=== PATIENT | female | born 1995 | race Caucasian/White ===

== ENCOUNTER 2021-09-15 18:15 | Outpatient (CLI) | payer BC, SELFPAY ==
--- NOTE | 2021-09-19 11:57 | OB.TRI.NOTE ---
HPI - General HPI Narrative HEAVENLY MARTELL, is a 25 F who presents at 39 + weeks w/ ctxs. PFSH PFSH Home Medications [id number]-txl-[id number] 1 tab PO DAILY 09/15/21 [History Last Taken 09/14/21] acetaminophen 1,000 mg PO Q6H PRN PRN #0 tab 09/17/21 [Rx Last Taken Unknown] ibuprofen 600 mg PO Q6H PRN PRN #30 tab 09/17/21 [Rx Last Taken Unknown] Allergy/AdvReac Type Severity Reaction Status Date / Time No Known Allergies Allergy Verified 08/25/13 17:24 Social History Smoking Status: Never smoker History Elective abortions Hx Para 1 Spontaneous abortions Hx # Term Pregnancies Ectopic pregnancies Hx # Pregnancies Multiple births # of living children Assessment & Plan (1) Previous delivery, antepartum: PLAN: patient was not in active labor, d/angy home and returned later same day in active labor.
== END 2021-09-15 23:59 | disposition home or self-care (01) ==
LOC: WPOUT 18:21
PROVIDERS: Visit Provider Obstetrics & Gynecology
DX: O47.1 False labor at or after 37 completed weeks of gestation (principal); O34.219 Maternal care for unspecified type scar from previous cesarean delivery; Z3A.39 39 weeks gestation of pregnancy

== ENCOUNTER 2021-09-15 18:25 | Inpatient (IN) | payer BC, SELFPAY ==
[2021-09-15] VITALS (32 sets, daily range): BP systolic 82–136; BP diastolic 42–83; PULSE 55–103; TEMP 36.2–36.5; O2SAT 89–100; BMI 28.3
[2021-09-15] MEDS: Lactated Ringers 500 ML 999 ML IV ×2 (18:35→19:56)
[2021-09-15] MEDS: Lactated Ringers 1,000 ML 200 ML IV (18:35)
[2021-09-15 19:02] LABS: Absolute Lymphocyte Count 1.43 X10^3/uL (0.83-4.51); Absolute Neutrophil Count 10.3 X10^3/uL (2.0-7.7); Basophil# 0.02 X10^3/uL; Basophil% 0.2 % (0-1); Eosinophil# 0.06 X10^3/uL; Eosinophils% 0.5 % (0-5); Hemoglobin 13.5 g/dL (12.0-15.0); Lymphocyte # 1.43 X10^3/ul (0.83-4.51); Lymphocyte % 11.6 % (19-41); Mean Corp Hgb Conc 33.8 g/dL (32-36); Mean Corpuscular Hgb 29.2 pg (27.0-32.0); Mean Corpuscular Volume 86.6 fL (81-99); Mean Platelet Vol. 10.1 fl (6.2-12.0); Monocyte# 0.53 X10^3/uL; Monocyte% 4.3 % (0-10); NRBC Flagged by Analyzer 0 % (0-5); Neutrophil # 10.28 X10^3/uL (2.7-7.7); Neutrophil % 83.1 % (47-70); Platelet Count 293 K/mm3 (150-450); RBC Distribution Width CV 12.9 % (11.6-14.6); RBC Distribution Width SD 40.3 fl (35.1-43.9); Red Blood Count 4.62 M/mm3 (4.2-5.4); White Blood Count 12.4 K/mm3 (4.4-11.0)
[2021-09-15] MEDS: fentaNYL-bupivacaine (epidural) 100 ML BAG EPIDURAL (19:54)
[2021-09-15 20:14] LABS: Hepatitis C Antibody Non-Reactive (Nonreactive)
[2021-09-15] MEDS: Oxytocin 30 units/NS 500 ml 30 UNITS/500 ML IV.SOLN 334 UNITS IV (23:23)
--- NOTE | 2021-09-15 23:47 | PCM.HP.OB ---
HPI - General General Date of Admission: 09/15/21 Date of Service: 09/15/21 Chief Complaint: labor HPI Narrative HEAVENLY MARTELL, is a 25-year-old female 2 para 1-0-0-1 with EDC of 09/17/2021 who presents complaining contractions. She denied vaginal bleeding. She had some bloody show. She was in labor and delivery for rule out labor. She was discharged home and returned a couple of hours later and found to be in active labor. has been uncomplicated to date other than she had a previous primary section for her first delivery. Maternal Data Information Final GUILLERMO: 09/17/21 Gestational age: 39 5/7 PFSH PFSH Home Medications [id number] [] 1 tab PO DAILY 09/15/21 [History Last Taken 09/14/21] Allergy/AdvReac Type Severity Reaction Status Date / Time No Known Allergies Allergy Verified 08/25/13 17:24 Social History Smoking Status: Never smoker History Elective abortions Hx Para 1 Spontaneous abortions Hx # Term Pregnancies Ectopic pregnancies Hx # Pregnancies Multiple births # of living children ROS Constitutional Constitutional: Denies fatigue, fever(s) or malaise Eyes Eyes: Denies change in vision ENT HEENT: Denies dizziness or headache(s) Cardiovascular Cardiovascular: Denies chest pain, dyspnea or lightheadedness Respiratory/Chest Respiratory/Chest: Denies cough or dyspnea Gastrointestinal Gastrointestinal: Denies change in bowel habits Genitourinary Genitourinary: Denies burning urination or genital lesions Integumentary Integumentary: Denies rash Neurologic Neurologic: Denies confusion, dizziness, headache(s), numbness or weakness Vital Signs Vital Signs Vital Signs: 09/15/21 13:02 09/15/21 15:26 09/15/21 18:47 Temperature 97.7 F L Temperature Source Temporal Pulse Rate 93 73 76 Blood Pressure 120/75 120/61 108/63 BP Systolic 120 120 108 BP Diastolic 75 61 63 Pulse Ox 09/15/21 19:41 09/15/21 19:45 09/15/21 19:46 Temperature Temperature Source Pulse Rate 82 75 79 Blood Pressure 119/83 H 136/74 H BP Systolic 119 136 BP Diastolic 83 74 Pulse Ox 96 97 09/15/21 19:50 09/15/21 19:51 09/15/21 19:53 Temperature Temperature Source Pulse Rate 86 91 88 Blood Pressure 118/66 BP Systolic 118 BP Diastolic 66 Pulse Ox 99 89 09/15/21 19:55 09/15/21 19:56 09/15/21 20:00 Temperature Temperature Source Pulse Rate 80 79 73 Blood Pressure 91/55 L 91/53 L 96/50 L BP Systolic 91 91 96 BP Diastolic 55 53 50 Pulse Ox 98 09/15/21 20:01 09/15/21 20:05 09/15/21 20:06 Temperature Temperature Source Pulse Rate 79 68 75 Blood Pressure 104/52 L BP Systolic 104 BP Diastolic 52 Pulse Ox 97 98 09/15/21 20:10 09/15/21 20:11 09/15/21 20:16 Temperature Temperature Source Pulse Rate 76 73 74 Blood Pressure 99/57 L 106/51 L BP Systolic 99 106 BP Diastolic 57 51 Pulse Ox 98 100 09/15/21 20:19 09/15/21 20:21 09/15/21 20:25 Temperature Temperature Source Pulse Rate 81 70 66 Blood Pressure 105/51 L 100/57 L BP Systolic 105 100 BP Diastolic 51 57 Pulse Ox 99 09/15/21 20:29 09/15/21 21:55 09/15/21 21:56 Temperature 97.5 F L Temperature Source Pulse Rate 90 64 55 L Blood Pressure 104/55 L 102/56 L BP Systolic 104 102 BP Diastolic 55 56 Pulse Ox 99 09/15/21 23:04 09/15/21 23:15 09/15/21 23:20 Temperature 97.1 F L Temperature Source Temporal Pulse Rate 64 103 H 102 H Blood Pressure 112/55 L BP Systolic 112 BP Diastolic 55 Pulse Ox 100 99 100 09/15/21 23:42 Temperature Temperature Source Pulse Rate 95 Blood Pressure BP Systolic BP Diastolic Pulse Ox 98 Weight Weight: 77.3 kg Body Mass Index (BMI) 28.3 Physical Exam Const alert and no apparent distress General Appearance: cooperative HEENT normocephalic Resp normal respiratory effort Cardio regular rate GI soft to palpation GI Narrative: gravid, nontender, appropriate for gestational age Extremity no calf tenderness General Extremity: edema Skin no wounds Rashes: No rashes noted Psych activity/motor behavior normal Labs Labs Labs: Blood Type O POSITIVE Antibody Screen NEGATIVE Hct 40.0 % (37-47) Hgb 13.5 g/dL (12.0-15.0) Assessment & Plan (1) 39 weeks gestation of : PLAN: Estimated weight is less than 4000 g clinically. Pelvis is adequate to expect vaginal delivery. Risk benefits and alternatives to trial labor were discussed with patient, questions were answered to her satisfaction she desired to proceed. May have epidural as needed for pain control. Anesthesia, obstetrical and personnel notified. (2) Multigravida in third trimester: (3) Previous delivery, antepartum: (4) Spontaneous onset of labor:
--- NOTE | 2021-09-15 23:50 | EX.PCM.OBRPT ---
Assessment & Plan (1) First degree laceration of perineum during delivery, : (2) (vaginal after ): (3) Delivery outcome of single liveborn : Maternal Data Information Final GUILLERMO: 09/17/21 Gestational age: 39 5/7 Vaginal Delivery Maternal Presentation Maternal Presentation: Active Labor Operative Information Date of Procedure: 09/15/21 Pre-Operative Diagnosis: previous c/s Post-Operative Diagnosis: same Surgery / Procedure Performed: Type of Anesthesia: Epidural Anesthesiologist: Anita Boyd Special Medications: none Drain: Wright to straight drain Estimated Blood Loss: 300 Time of Delivery: 23:22 Findings Description of Procedure: A vigorous [female] was delivered [RADHA] over a first-degree vaginal laceration. The remainder the infant was delivered with maternal pushing and gentle traction only in less than 15 seconds. The Pitocin infusion was initiated for active management of the third stage. The cord was clamped and cut [after 1 minute]. The infant was attended to by the waiting nursing staff. The placenta was delivered spontaneously and intact. The cervix and vagina were intact. The first-degree vaginal laceration was repaired with 3-0 Vicryl suture in a running standard fashion. Sponge and needle counts were correct. A vaginal sweep was completed by me. Presentation: RADHA Amniotic Membrane Rupture Type: Artificial Amniotic Fluid Description: Clear and Lightly stained meconium Placental Delivery Description: Spontaneous Placenta Disposition: [facility] Cord Vessel Description: 3 Vessels Cord Entanglement: None A Gender: Female (Geeta) (1 minute): 8 (5 minute): 9 Delayed Cord Clamping: Yes Post Vaginal Delivery Medications Given After Delivery: IV Pitocin Episiotomy Description: None Laceration: 1st degree Complication Complications: None
[2021-09-16] VITALS (36 sets, daily range): BP systolic 84–110; BP diastolic 46–62; PULSE 56–88; RESP 16–18; TEMP 36.2–36.9; O2SAT 97–98
--- NOTE | 2021-09-16 02:45 | NURSING ---
Report given to Sophie VIDALES, taking over pt and care at this time.
--- NOTE | 2021-09-16 04:34 | NURSING ---
Epidural catheter removed and blue tip intact.
[2021-09-16] MEDS: Ibuprofen 600 MG Tablet PO ×3 (09:31→22:22)
[2021-09-16] MEDS: Senna/Docusate Sodium 1 Tablet PO (09:32)
[2021-09-16] MEDS: Acetaminophen 500 MG Tablet 1000 MG PO ×2 (12:29→18:42)
[2021-09-16] MEDS: Prenatal Vits Tablet 1 TABLET PO (12:31)
[2021-09-17 01:15] VITALS: BP 93/53; PULSE 70; RESP 16; TEMP 36.4
[2021-09-17] MEDS: Acetaminophen 500 MG Tablet 1000 MG PO ×2 (01:15→12:25)
[2021-09-17] MEDS: Benzocaine/Lanolin/Aloe Vera 1 SPRAY EACH TOPICAL (04:52)
[2021-09-17] MEDS: Ibuprofen 600 MG Tablet PO (07:43)
[2021-09-17] MEDS: Senna/Docusate Sodium 1 Tablet PO (07:43)
[2021-09-17 07:45] VITALS: BP 103/57; PULSE 65; RESP 16; TEMP 35.9
--- NOTE | 2021-09-17 09:26 | PCM.PN.OB ---
Subjective Subjective Doing well per patient and nursing staff. Ambulating and taking PO without difficulty. Voiding and passing flatus. Pain controlled. , services for assistance. Denies headache, visual changes, chest pain, shortness of breath, leg pain or increased bleeding. Lochia normal. Objective Data Objective Data Vital Signs: Vital Signs Temp Pulse Resp BP Pulse Ox 96.7 F L 65 16 103/57 L 98 09/17/21 07:45 09/17/21 07:45 09/17/21 07:45 09/17/21 07:45 09/16/21 01:57 Oxygen Delivery Method Room Air Weight: 170 lb 6.677 oz Body Mass Index (BMI) 28.3 Intake & Output: Intake and Output for Last 24 Hours 09/15/21 09/16/21 09/17/21 23:59 23:59 23:59 Intake Total 2220.33 / 2220.33 333 / 333 Output Total 200 / 200 2400 / 2400 Balance 2019. / 33 -2066 / Lab / Micro Data Result Diagrams: 09/15/21 18:35 Micro: Microbiology 09/15/21 18:50 Nasal Secretion SARS-CoV-2 Antigen (Rapid) - Final ROS Constitutional Constitutional: Reports systems reviewed and no addt'l complaints, except as documented; Denies headache(s) Eyes Eyes: Denies acute decrease in peripheral vision, blurry vision or change in vision ENT HEENT: Reports systems reviewed and no addt'l complaints, except as documented Cardiovascular Cardiovascular: Denies chest pain or dizziness Respiratory/Chest Respiratory/Chest: Denies cough, dyspnea, dyspnea on exertion, shortness of breath at rest or shortness of breath with exertion Gastrointestinal Gastrointestinal: Denies abdominal pain, diarrhea, nausea or vomiting Genitourinary Genitourinary: Denies abdominal discomfort Musculoskeletal Musculoskeletal: Denies limited range of motion Integumentary Integumentary: Reports systems reviewed and no addt'l complaints, except as documented Neurologic Neurologic: Reports systems reviewed and no addt'l complaints, except as documented Psychiatric Psychiatric: Reports systems reviewed and no addt'l complaints, except as documented Endocrine Endocrinology: Reports systems reviewed and no addt'l complaints, except as documented Hematologic/Lymphatic Hematologic/Lymphatic: Reports systems reviewed and no addt'l complaints, except as documented Allergic/Immunologic Allergic/Immunologic: Reports systems reviewed and no addt'l complaints, except as documented Physical Exam Const alert and oriented x3 General Appearance: cooperative Orientation / Consciousness: awake, oriented to person, oriented to place and oriented to time Exam Limitations: no limitations HEENT normocephalic Head and Scalp: normal to inspection, normocephalic and atraumatic Face and Sinus: normal facial exam Eyes General Eye: normal appearance of both eyes Neck full ROM Chest Chest: symmetrical chest wall rise Resp normal respiratory effort and normal air movement Auscultation: clear to auscultation bilaterally Cardio regular rate, regular rhythm, S1 normal heart sound, S2 normal heart sound, no murmurs, no rub, no gallops and no clicks GI normal to inspection, nondistended, normoactive bowel sounds and non-tender GI Narrative: fundus 2 below U Narrative: lochia rubra, laceration well approximated with sutures Bladder / Kidney Exam: no CVA tenderness Back/Spine normal ROM Extremity normal to inspection and full ROM Skin no rashes or lesions noted Neuro oriented x3, CN's II-XII intact bilaterally and moves all extremities Sensorium / Orientation: awake, alert and oriented to person Motor Exam: clonus absent Deep Tendon Reflexes: Rt Patellar (L4): 2+ and Lt Patellar (L4): 2+ Assessment & Plan (1) Delivery outcome of single liveborn : (2) First degree laceration of perineum during delivery, : (3) (vaginal after ): PLAN: 1) Routine PP care 2) , services upon request 3) Pain management, declines prescription 4) vitals stable 5) Planning D/C home today 6) Follow up in 2 weeks virtual visit and 6 weeks PP visit
--- NOTE | 2021-09-17 09:28 | PCM.DC.SUM ---
Providers Date of Admission: 09/15/21 Reason For Visit: VAGINAL DELIVERY Diagnosis Discharge Diagnosis (1) Delivery outcome of single liveborn infant: Status: Acute Code(s): Z37.0 - Single live (2) First degree laceration of perineum during delivery, : Status: Acute Code(s): O70.0 - First degree perineal laceration during delivery (3) (vaginal after ): Status: Acute Code(s): O34.219 - Maternal care for unspecified type scar from previous delivery Medications at Discharge Home Medications [id number]-[id number] 1 tab PO DAILY 09/15/21 acetaminophen 1,000 mg PO Q6H PRN PRN #0 tab 09/17/21 ibuprofen 600 mg PO Q6H PRN PRN #30 tab 09/17/21 Weight / BMI Weight Weight: 170 lb 6.677 oz Body Mass Index (BMI) 28.3 ABG / Lab / Microbiology Data Result Diagrams: 09/15/21 18:35 Microbiology: Microbiology 09/15/21 18:50 Nasal Secretion SARS-CoV-2 Antigen (Rapid) - Final Meaningful Use Info Meaningful Use Diagnoses (Choose all that apply): None applicable Discharge Plan Admission Admit Date/Time: 09/15/21 18:25 Primary Reason for Your Visit: Vaginal Delivery Attending Provider: Sasha Sam Instructions Patient Instructions: After a Vaginal Discharge Orders/Prescriptions Prescriptions: New acetaminophen 500 mg Tablet 1,000 mg PO Q6H PRN PRN (Reason: Pain 1-10 Or Fever) Qty: 0 RF: 0 ibuprofen 600 mg Tablet 600 mg PO Q6H PRN PRN (Reason: Pain Score 1-3) Qty: 30 RF: 0 Continued vvarqrcu-vck-Za-FA 1 mg Tablet 1 tab PO DAILY RF: 0 Referrals / Follow Up: Sasha Sam MD [STAFF PHYSICIAN] - Disposition Disposition (needs filled in before D/C Order can be placed): Home, Self Care
[2021-09-17 12:15] VITALS: BP 93/66; PULSE 88; RESP 16; TEMP 36.6
[2021-09-17] MEDS: Prenatal Vits Tablet 1 TABLET PO (12:25)
== END 2021-09-17 13:40 | disposition home or self-care (01) | DRG 807 ==
PROVIDERS: Admitting Provider Obstetrics & Gynecology; Referring Provider Obstetrics & Gynecology; Visit Provider Obstetrics & Gynecology
DX: O34.219 Maternal care for unspecified type scar from previous cesarean delivery (principal); Z37.0 Single live birth; O70.0 First degree perineal laceration during delivery; Z3A.39 39 weeks gestation of pregnancy; O77.0 Labor and delivery complicated by meconium in amniotic fluid; Z39.1 Encounter for care and examination of lactating mother
CPT/HCPCS: 59025; 59050; 85025; 86803; 86850; 86900; 86901; 87811; 99218; J7120; G0378

== ENCOUNTER 2023-06-25 16:54 | Inpatient (IN) | payer BC, SELFPAY ==
[2023-06-25] VITALS (49 sets, daily range): BP systolic 69–130; BP diastolic 43–82; PULSE 53–96; TEMP 36.1–36.4; O2SAT 94–100; BMI 28.0
[2023-06-25] MEDS: Lactated Ringers 1,000 ML 50 ML IV (16:50)
[2023-06-25] MEDS: LACTATED RINGERS 500 ML 999 ML IV ×2 (17:00→21:24)
[2023-06-25 17:06] LABS: Absolute Lymphocyte Count 1.49 X10^3/uL (0.83-4.51); Absolute Neutrophil Count 9.6 X10^3/uL (2.0-7.7); Basophil# 0.02 X10^3/uL; Basophil% 0.2 % (0-1); Eosinophil# 0.07 X10^3/uL; Eosinophils% 0.6 % (0-5); Hematocrit 35.7 % (37-47); Hemoglobin 12.2 g/dL (12.0-15.0); Lymphocyte # 1.49 X10^3/ul (0.83-4.51); Lymphocyte % 12.7 % (19-41); Mean Corp Hgb Conc 34.2 g/dL (32-36); Mean Corpuscular Hgb 29.5 pg (27.0-32.0); Mean Corpuscular Volume 86.4 fL (81-99); Mean Platelet Vol. 10.4 fl (6.2-12.0); Monocyte% 4.3 % (0-10); NRBC Flagged by Analyzer 0 % (0-5); Neutrophil # 9.61 X10^3/uL (2.7-7.7); Neutrophil % 81.8 % (47-70); Platelet Count 250 K/mm3 (150-450); RBC Distribution Width CV 13.1 % (11.6-14.6); RBC Distribution Width SD 41.1 fl (35.1-43.9); Red Blood Count 4.13 M/mm3 (4.2-5.4); White Blood Count 11.7 K/mm3 (4.4-11.0)
--- NOTE | 2023-06-25 17:50 | PCM.HP.OB ---
HPI - General General Date of Admission: 06/25/23 HPI Narrative HEAVENLY MARTELL, is a 27 F at 39.2 weeks gestation who presents in spontaneous labor. Maternal Data Information UGILLERMO Calculator Estimated Delivery Date Method Current WG Current Estimate 06/30/23 Manual 39w 2d PFSH PFSH Medical History Asthma Family history of malignant hyperthermia Superficial varicosities Vaginal after Home Medications [id number]-yaf-[id number]-FA 1 mg tablet 1 tab PO DAILY Check with primary doctor 09/15/21 [History Last Taken 09/14/21] Allergy/AdvReac Type Severity Reaction Status Date / Time No Known Allergies Allergy Verified 06/25/23 16:59 Surgical History Previous section Social History Smoking Status: Never smoker History Elective abortions Hx Para 1 Spontaneous abortions Hx # Term Pregnancies Ectopic pregnancies Hx # Pregnancies Multiple births # of living children ROS Eyes Eyes: Denies blurry vision, change in vision or spots in vision ENT HEENT: Denies dizziness or headache(s) Cardiovascular Cardiovascular: Denies abdominal pain, chest pain or dyspnea Respiratory/Chest Respiratory/Chest: Denies cough, dyspnea, shortness of breath at rest or shortness of breath with exertion Gastrointestinal Gastrointestinal: Denies abdominal pain, diarrhea or vomiting Genitourinary Genitourinary: Denies change in urinary stream, difficulty urinating or dysuria Musculoskeletal Musculoskeletal: Reports none Integumentary Integumentary: Denies rash Neurologic Neurologic: Denies dizziness, headache(s), memory loss or weakness Psychiatric Psychiatric: Reports none Vital Signs Vital Signs Vital Signs: 06/25/23 13:18 06/25/23 13:18 06/25/23 13:22 Temperature Temperature Source Pulse Rate 84 93 Blood Pressure 120/75 BP Systolic 120 BP Diastolic 75 Pulse Ox 06/25/23 13:22 06/25/23 13:19 06/25/23 13:19 Temperature 97.6 F L Temperature Source Temporal Pulse Rate Blood Pressure BP Systolic BP Diastolic Pulse Ox 96 06/25/23 15:12 06/25/23 15:12 Temperature Temperature Source Pulse Rate 82 Blood Pressure 124/72 H BP Systolic 124 BP Diastolic 72 Pulse Ox Weight Weight: 168 lb 13.985 oz Body Mass Index (BMI) 28.0 Physical Exam Const alert, oriented x3 and no apparent distress General Appearance: cooperative Orientation / Consciousness: awake Exam Limitations: no limitations HEENT normocephalic Head and Scalp: normal to inspection Eyes General Eye: normal appearance of both eyes Neck full ROM and no lymphadenopathy Lymph Lymphatic: no lymphadenopathy noted Chest inspection of chest normal Resp normal respiratory effort, normal air movement and clear to auscultation bilaterally Effort and Inspection: able to speak in complete sentences and symmetric chest movement Cardio regular rate and regular rhythm GI normal to inspection, nondistended, normoactive bowel sounds Manual OB Exam: presentation cephalic Back/Spine normal ROM Extremity full ROM and no calf tenderness Skin no rashes or lesions noted General Skin Exam: no breakdown Neuro oriented x3 and CN's II-XII intact bilaterally Psych mental status grossly normal and thought process normal Labs Labs Labs: Blood Type O POSITIVE Antibody Screen NEGATIVE Hct 35.7 % (37-47) L Hgb 12.2 g/dL (12.0-15.0) Syphilis Total Ab Pending Hepatitis C Antibody Non-Reactive (Nonreactive) Rhogam given: No GBS NEG Assessment & Plan (1) Spontaneous onset of labor: (2) Previous delivery, antepartum: (3) Multigravida in third trimester: (4) 39 weeks gestation of : (5) History of : (6) History of delivery, antepartum: PLAN: Plan CE 5-6 cm/ 80/ -1 Admit to labor and delivery Routine labs Start IV and run fluids per orders GBS negative Epidural when indicated Desires - consent signed Dr. Gay aware of plan of care and admission and is in route to unit
[2023-06-25 18:28] LABS: Syphilis Antibodies Non-reactive
[2023-06-25] MEDS: Lactated Ringers 1,000 ML 200 ML IV (19:25)
[2023-06-25] MEDS: fentaNYL-bupivacaine (epidural) 100 ML BAG EPIDURAL (20:17)
--- NOTE | 2023-06-25 20:28 | PCM.PN.BLA ---
Progress Note pt examined at bedside- AROM Moderate Meconium. 7-8cm/70/-2. Epidural in place- pt is comfortable. FHR tracing Cat1 reactive. anticipate
[2023-06-25] MEDS: Oxytocin 15 Units/NS 250ml 15 UNITS/250 ML IV.SOLN 83 UNITS IV (22:50)
[2023-06-25] MEDS: Oxytocin 10 UNITS/ML Vial IM (22:52)
--- NOTE | 2023-06-25 22:58 | OP.PCM_ITS ---
Maternal Data Information GUILLERMO Calculator Estimated Delivery Date Method Current WG Current Estimate 06/30/23 Manual 39w 2d Vaginal Delivery Maternal Presentation Maternal Presentation: Active Labor Operative Information Date of Procedure: 06/25/23 Pre-Operative Diagnosis: Previous CS, Previous Successful , 39 weeks in l abor Post-Operative Diagnosis: Same, live female Surgery / Procedure Performed: Type of Anesthesia: Epidural Estimated Blood Loss: 100 Time of Delivery: 22:48 Findings Description of Procedure: Pt progressed to fully dilated- good maternal pushing efforts delivered head. Shoulder dystocia recognized, pt asked to stop pushing legs placed in nicholas and with good pushing efforts the anterior shoulder delivered followed by rest of body without complication. infant was placed on maternal chest and peds team available for resuscitation. IM and IV pitocin given. Placenta delivered intact. Small 1st degree vaginal laceration noted bleeding- hemostasis achieved with 3-0 rapide. Presentation: Vertex Amniotic Membrane Rupture Type: Artificial Amniotic Fluid Description: Moderate meconium Placental Delivery Description: Spontaneous Placenta Disposition: [facility] Specimen(s) Removed: placenta Cord Vessel Description: 3 Vessels Cord Entanglement: Around neck x 1, loose (reduced ) Nuchal Cord Compression: With compression Infant A Gender: Female (1 minute): 7 (5 minute): 9 Delayed Cord Clamping: Yes Post Vaginal Delivery Medications Given After Delivery: IV Pitocin and IM Pitocin Episiotomy Description: None Laceration: Vaginal Extension/lac and 1st degree Complication Complications: None
[2023-06-25] MEDS: Acetaminophen 500 MG Tablet PO (23:53)
[2023-06-26] VITALS (25 sets, daily range): BP systolic 91–106; BP diastolic 51–59; PULSE 57–76; RESP 16–18; TEMP 36.7–37.3; O2SAT 97–98
[2023-06-26] MEDS: Naproxen 500 MG Tablet PO ×3 (00:38→17:49)
--- NOTE | 2023-06-26 07:15 | PCM.PN.BLA ---
Progress Note Patient seen at bedside. Feeling good. Denies any pain. Ambulating and voiding without difficulty. with minimal support. Lochia is minimal. Physical Exam Const alert and no apparent distress General Appearance: cooperative and comfortable Exam Limitations: no limitations HEENT normocephalic Eyes General Eye: normal appearance of both eyes Neck full ROM General: normal visual inspection Chest Chest: symmetrical chest wall rise Resp normal respiratory effort and normal air movement Effort and Inspection: symmetric chest movement Auscultation: clear to auscultation bilaterally Cardio regular rate and regular rhythm GI normal to inspection, nondistended, normoactive bowel sounds Back/Spine normal ROM Extremity full ROM and no calf tenderness General Extremity: normal exam except as noted Skin no rashes or lesions noted Neuro CN's II-XII intact bilaterally Psych mental status grossly normal Assessment & Plan Assessment/Plan (1) Care and examination of lactating mother: (2) (vaginal after ): PLAN: Plan PPD 1 support Pain control Anticipate discharge home tomorrow
[2023-06-26] MEDS: Acetaminophen 500 MG Tablet 1000 MG PO (12:25)
[2023-06-26] MEDS: Benzocaine/Lanolin/Aloe Vera 1 SPRAY EACH TOPICAL (12:26)
[2023-06-27] MEDS: Acetaminophen 500 MG Tablet 1000 MG PO ×2 (00:01→10:18)
[2023-06-27 02:31] VITALS: BP 120/59; PULSE 71
[2023-06-27] MEDS: Naproxen 500 MG Tablet PO (02:31)
[2023-06-27 02:32] VITALS: BP 120/59; PULSE 73; RESP 16; TEMP 36.9; O2SAT 98
[2023-06-27 07:51] VITALS: BP 99/58; PULSE 59
[2023-06-27 07:56] VITALS: BP 121/81; PULSE 86; RESP 16; TEMP 36.3
--- NOTE | 2023-06-27 10:05 | PCM.PN.OB ---
Subjective Subjective Patient is doing well. Ambulating and voiding without difficulty. Lochia is normal. Breast-feeding without complaints. No chest pain, trouble breathing, leg pain. She had a bowel movement today. She desires to go home today. Objective Data Objective Data Vital Signs: Vital Signs Temp Pulse Resp BP Pulse Ox O2 Del Method 97.4 F L 86 16 121/81 H 98 Room Air 06/27/23 07:56 06/27/23 07:56 06/27/23 07:56 06/27/23 07:56 06/27/23 02:32 06/27/23 02:32 Oxygen Delivery Method Room Air Weight: 168 lb 13.985 oz Body Mass Index (BMI) 28.0 Intake & Output: Intake and Output for Last 24 Hours 06/25/23 06/26/23 06/27/23 23:59 23:59 23:59 Intake Total 1825.84 / 1825.84 250 / 250 Output Total 500 / 500 400 / 400 Balance 1325.84 / 1325.84 -150 / -150 Lab / Micro Data 06/25/23 16:50 Physical Exam Const alert and no apparent distress General Appearance: comfortable Assessment & Plan (1) (vaginal after ): PLAN: Patient is day 2 from a vaginal after a section. She is doing well meeting milestones for discharge. Discharge instructions reviewed.
--- NOTE | 2023-06-27 10:08 | DCINST_ITS ---
Discharge Instructions Diet Discharge Diet: No restrictions Activity Discharge Activity: May Drive and May Shower May resume sexual activity in: 6 weeks Ice area for (Minutes): 15 Weight Bearing Status: Weight bearing as tolerated Lifting Restrictions: nothing heavier than baby Dressing / Incision Call your doctor if you observe: Fever of 101 or Higher, Coldness, Increased Pain, Numbness or Tingling, Change in Color, Inability to urinate, Inability to have a bowel movement, Using more than 1 pad per hour, Shortness of breath, Dizziness, Fainting spells, Swelling in the ankles, Chest pain, Increased palpitations (irregular heartbeat), Calf discomfort and Uncontrolled pain Cleanse incision/area with: Soap & Water Follow Up Care Please Follow Up With: Christy Guillermo MD When: 1-2 weeks early 6 weeks for exam Test Results: Test results from this visit will be discussed in further detail at your follow- up appointment, if applicable. Discharge Plan Admission Admit Date/Time: 06/25/23 16:54 Primary Reason for Your Visit: delivery Attending Provider: Christy Guillermo Instructions Patient Instructions: After a Vaginal Discharge Orders/Prescriptions Prescriptions: Continued lvfiohbr-vjp-Gk-FA 1 mg Tablet 1 tab PO DAILY Disposition Disposition (needs filled in before D/C Order can be placed): Home, Self Care
--- NOTE | 2023-07-01 10:58 | NURSING ---
Follow up phone call performed. Pt. reports to be doing well. Denies any complications with vaginal bleeding, no s+s reported. Infant has been feeding well overall, but pt. is having nipple pain now. Has appt tomorrow with [facility]. IBCLC reviewed information on managing nipple tenderness, and pt. to have feeding assessment tomorrow. Denies further questions or concerns.
== END 2023-06-27 10:45 | disposition home or self-care (01) | DRG 807 ==
LOC: WPOUT 16:54 → WP 16:55
PROVIDERS: Admitting Provider Advanced Practice Midwife; Referring Provider Advanced Practice Midwife; Visit Provider Obstetrics & Gynecology
DX: O34.219 Maternal care for unspecified type scar from previous cesarean delivery (principal); Z37.0 Single live birth; O66.0 Obstructed labor due to shoulder dystocia; O70.0 First degree perineal laceration during delivery; O69.1XX0 Labor and delivery complicated by cord around neck, with compression, not applicable or unspecified; O77.0 Labor and delivery complicated by meconium in amniotic fluid; Z3A.39 39 weeks gestation of pregnancy
CPT/HCPCS: 59025; 59050; 85025; 86780; 86850; 86900; 86901; 99221; J7120; G0378